=== PATIENT | female | born 1965 | race Two or more races ===

== ENCOUNTER 2024-06-26 10:49 | Outpatient (AMB) | payer MEDICAID, SELFPAY ==
--- NOTE | 2024-06-26 10:58 | ORTHONT_ITS ---
Vital signs 06/26/24 10:59 Height 1.55 m Height Method Stated Weight 67.614 kg Weight Measurement Method Standing Scale BMI 28.1 BP 133/84 H Blood Pressure Source Automatic Cuff Blood Pressure Location Left Upper Arm Position Sitting Respiration 18 Pulse 99 Pulse Source Monitor Temp 97.9 F Temp Source Temporal Artery Scan Pulse Oximetry (%) 95 Oxygen Delivery Method Room Air Med/Allergies Allergies & Medications Allergies No Known Allergies Allergy (Verified 06/26/24 10:59) Medication Reconciliation acetaminophen 500 mg tablet 1,000 mg PO QID PRN Pain 05/13/24 [History Confirmed 06/26/24] acetaminophen 500 mg tablet (Acetaminophen Extra Strength) 1,000 mg (2 x 500 mg) PO Q6H PRN pain #90 tabs 05/14/24 [Rx Confirmed 06/26/24] aspirin 81 mg tablet,delayed release 81 mg PO BID #60 tabs 05/14/24 [Rx Confirmed 06/26/24] doxycycline hyclate 100 mg tablet 100 mg PO BID #14 tabs 05/14/24 [Rx Confirmed 06/26/24] ferrous sulfate 324 mg (65 mg iron) tablet,delayed release 324 mg PO BID 05/14/24 [History Confirmed 06/26/24] gabapentin 300 mg capsule 300 mg PO .qhs #30 caps 05/14/24 [Rx Confirmed 06/26/24] oxycodone 5 mg tablet 5 mg PO Q6H PRN pain #28 tabs 05/14/24 [Rx Confirmed 1 08/26/23] sennosides 8.6 mg-docusate sodium 50 mg tablet (Senna-S) 1 tab-cap PO QDAY #30 tabs 05/14/24 [Rx Confirmed 06/26/24] Subjective Visit Visit for: follow up visit, post op #1 and knee Immunization / Flu Flu Vaccine in the Last 12 Months: No Flu Vaccine Exclusion Criteria: No Exclusion Criteria History of Present Illness Chief complaint: 2 WEEK POST OP SX Patient is a pleasant 59-year-old female status post left total knee replacement. She is doing well. She is using a walker. Personal History Occupation: DISABLED Red flag PMH: none Pain Pain level (0-10): 3 Pain duration: ON AND OFF Pain location: inside (medial) Pain quality: aching Pain timing: night Associated signs & symptoms: none Ambulatory data Ambulatory device: walker Treatments Improvement with previous injections: No Improvement with PT: No Improvement with NSAIDS: no Review of Systems Review of Systems: All systems negative unless otherwise noted in HPI. Exam Exam Patient is in no acute distress and is cooperative with the examination today. Breathing is nonlabored. Patient has a normal mood and affect. Bilateral extremities were evaluated and demonstrates sensation intact to light touch. Palpable pedal pulses are present. No significant edema is present. Bilateral hips were examined. The patient has no pain with log roll of the hips. Internal rotation to 30 degrees and external rotation to 30 degrees is painless. Negative FADIR. Right knee was examined today. The right knee is in reasonable alignment. Range of motion from 0-120 degrees. Knee is stable to varus and valgus as well as AP translation with <5mm. Patient has a negative McMurrays. There is no pain with patellofemoral compression and no crepitus noted. The knee is nontender to palpation. Left knee incision is clean dry and intact Assessment and Plan Problem List (1) Pain in left knee: Status: Acute Plan: Patient is a 58-year-old female with left knee pain and left knee osteoarthritis. The patient is doing well status post left total knee replacement Her left knee x-rays look good. Will see her in approximately 4 to 6 weeks (2) Unilateral primary osteoarthritis, left knee: Status: Acute Office Procedures GNS Level of Care Nursing/Assessment Patient Status: Established Patient Nursing Assessment/Reassesment: Medication Reconciliation, Update PMH in EMR and Vital Signs Coordination of Care: Complex Care and Chronic Disease 1-5, Education Complex Pt/Fam, Consent,records obtained, informed consent, Results/Orders obtained and Staff clarify orders Established Patient Charge Established Patient Point Assignment: 95 Established Patient Point Charge: EP Level 3 (80-115) Past Medical History Past Medical History Have you ever been diagnosed with any of the following: Neurological Problems Seizures: No Cardiology Problems Congestive Heart Failure: No Respiratory Problems Chronic Obstructive Pulmonary Disease (COPD): No Smoking: No Smoking Exposure: No Tobacco Use: No Stomache/Intestinal Problems Hepatitis: No Obesity: Yes Genital/Urinary Problems Renal Disease: Yes (sees Dr Espinosa) Reproductive Problems Previous Pregnancies: Yes (x3) Musculoskeletal Problems Arthritis: Yes Endocrine Problems Diabetes Mellitus Type 1: No Diabetes Mellitus Type 2: Yes (lost weight not taking meds anymore per ) Blood Problems Anemia: Yes Other Problems Hospitalization: No Shingles: No Blood Transfusions: No Blood Transfusion Reaction: No Anesthesia Reactions: No Chicken Pox: Yes Cancer: Yes
[2024-06-26 10:59] VITALS: BP 133/84; PULSE 99; RESP 18; TEMP 36.6; O2SAT 95; BMI 28.1
== END 2024-06-26 11:02 | disposition home or self-care (01) ==
LOC: HODSRG 10:49
PROVIDERS: PCP Family Medicine; Referring Provider Family Medicine; Supervising Provider Orthopaedic Surgery Adult Reconstructive Orthopaedic Surgery; Visit Provider Orthopaedic Surgery Adult Reconstructive Orthopaedic Surgery
DX: M25.562 Pain in left knee (principal); M17.12 Unilateral primary osteoarthritis, left knee; Z96.652 Presence of left artificial knee joint
CPT/HCPCS: 99213; G0463

== ENCOUNTER 2024-09-12 15:05 | Outpatient (AMB) | payer MEDICAID, SELFPAY ==
[2024-09-12 16:05] VITALS: BP 139/82; PULSE 90; RESP 18; TEMP 36.3; O2SAT 97; BMI 29.5
--- NOTE | 2024-09-12 16:05 | PD.ORTHCLVIS ---
Vital signs 09/12/24 16:05 Height 1.55 m Height Method Stated Weight 70.789 kg Weight Measurement Method Standing Scale BMI 29.5 BP 139/82 H Blood Pressure Source Automatic Cuff Blood Pressure Location Right Upper Arm Position Sitting Respiration 18 Pulse 90 Pulse Source Monitor Temp 97.4 F Temp Source Temporal Artery Scan Pulse Oximetry (%) 97 Oxygen Delivery Method Room Air Med/Allergies Allergies & Medications Allergies No Known Allergies Allergy (Verified 09/12/24 16:08) Exam Exam Patient is in no acute distress and is cooperative with the examination today. Breathing is nonlabored. Patient has a normal mood and affect. Bilateral extremities were evaluated and demonstrates sensation intact to light touch. Palpable pedal pulses are present. No significant edema is present. Bilateral hips were examined. The patient has no pain with log roll of the hips. Internal rotation to 30 degrees and external rotation to 30 degrees is painless. Negative FADIR. Right knee was examined today. The right knee is in reasonable alignment. Range of motion from 0-120 degrees. Knee is stable to varus and valgus as well as AP translation with <5mm. Patient has a negative McMurrays. There is no pain with patellofemoral compression and no crepitus noted. The knee is nontender to palpation. Left knee incision is clean dry and intact. ROM is 0-100 degrees Assessment and Plan Problem List (1) Pain in left knee: Status: Acute Plan: Patient is a 58-year-old female with left knee pain and left knee osteoarthritis. The patient is doing well status post left total knee replacement We will get x-rays of her right knee. (2) Unilateral primary osteoarthritis, left knee: Status: Acute Office Procedures GNS Level of Care Nursing/Assessment Patient Status: Established Patient Nursing Assessment/Reassesment: Medication Reconciliation, Update PMH in EMR and Vital Signs Coordination of Care: Complex Care and Chronic Disease 1-5, Education Complex Pt/Fam, Consent,records obtained, informed consent, Results/Orders obtained and Staff clarify orders Established Patient Charge Established Patient Point Assignment: 95 Established Patient Point Charge: EP Level 3 (80-115) MA Intake Visit Data Collection New Patient or Established: Established Patient (seen at [facility] within 3 years) Reason for Visit:: LEFT KNEE TKA Seen by Clinical Staff ONLY (RN/MA): No Verbal consent obtained for Telemed visit?: No Health Support Specialist Required: No PCP or OBGYN visit in last 3 months: Yes Hx Now: No Do You Feel Safe at Home: Yes Authorities Contacted: N/A Questionairres Past Medical History Past Medical History Have you ever been diagnosed with any of the following: Neurological Problems Seizures: No Cardiology Problems Congestive Heart Failure: No Respiratory Problems Chronic Obstructive Pulmonary Disease (COPD): No Smoking: No Smoking Exposure: No Tobacco Use: No Stomache/Intestinal Problems Hepatitis: No Obesity: Yes Genital/Urinary Problems Renal Disease: Yes (sees Dr Espinosa) Reproductive Problems Previous Pregnancies: Yes (x3) Musculoskeletal Problems Arthritis: Yes Endocrine Problems Diabetes Mellitus Type 1: No Diabetes Mellitus Type 2: Yes (lost weight not taking meds anymore per ) Blood Problems Anemia: Yes Other Problems Hospitalization: No Shingles: No Blood Transfusions: No Blood Transfusion Reaction: No Anesthesia Reactions: No Chicken Pox: Yes Cancer: Yes Subjective Visit Visit for: follow up visit and knee Immunization / Flu Flu Vaccine in the Last 12 Months: No Flu Vaccine Exclusion Criteria: No Exclusion Criteria History of Present Illness Chief complaint: Right knee pain Vijay 4-month status post left total knee replacement. She is doing well. She is no clear her left knee at all. She feels the right knee is affecting her she is never been worked up performed. We will get x-rays at this Pain Pain level (0-10): 4 Pain duration: ALL DAY Ambulatory data Ambulatory device: none Treatments Improvement with previous injections: No Improvement with PT: No Improvement with NSAIDS: n/a Review of Systems Review of Systems: All systems negative unless otherwise noted in HPI.
== END 2024-09-12 16:14 | disposition home or self-care (01) ==
PROVIDERS: PCP Family Medicine; Referring Provider Family Medicine; Supervising Provider Orthopaedic Surgery Adult Reconstructive Orthopaedic Surgery; Visit Provider Orthopaedic Surgery Adult Reconstructive Orthopaedic Surgery
DX: M25.562 Pain in left knee (principal); M17.12 Unilateral primary osteoarthritis, left knee; Z96.652 Presence of left artificial knee joint
CPT/HCPCS: 99213; G0463

== ENCOUNTER 2024-09-30 15:01 | Outpatient (AMB) | payer MEDICAID, SELFPAY ==
[2024-09-30 15:15] VITALS: BP 128/80; PULSE 80; RESP 18; TEMP 36.4; O2SAT 95; BMI 29.7
--- NOTE | 2024-09-30 15:15 | PD.ORTHCLVIS ---
Vital signs 09/30/24 15:15 Height 1.55 m Height Method Stated Weight 71.384 kg Weight Measurement Method Standing Scale BMI 29.7 BP 128/80 Blood Pressure Source Automatic Cuff Blood Pressure Location Right Upper Arm Position Sitting Respiration 18 Pulse 80 Pulse Source Monitor Temp 97.5 F Temp Source Temporal Artery Scan Pulse Oximetry (%) 95 Oxygen Delivery Method Room Air Med/Allergies Allergies & Medications Allergies No Known Allergies Allergy (Verified 09/30/24 15:16) Medication Reconciliation acetaminophen 500 mg tablet 1,000 mg PO QID PRN Pain 05/13/24 [History Confirmed 09/30/24] acetaminophen 500 mg tablet (Acetaminophen Extra Strength) 1,000 mg (2 x 500 mg) PO Q6H PRN pain #90 tabs 05/14/24 [Rx Confirmed 09/30/24] aspirin 81 mg tablet,delayed release 81 mg PO BID #60 tabs 05/14/24 [Rx Confirmed 09/30/24] doxycycline hyclate 100 mg tablet 100 mg PO BID #14 tabs 05/14/24 [Rx Confirmed 09/30/24] ferrous sulfate 324 mg (65 mg iron) tablet,delayed release 324 mg PO BID 05/14/24 [History Confirmed 09/30/24] gabapentin 300 mg capsule 300 mg PO .qhs #30 caps 05/14/24 [Rx Confirmed 09/30/24] oxycodone 5 mg tablet 5 mg PO Q6H PRN pain #28 tabs 05/14/24 [Rx Confirmed 09/30/24] sennosides 8.6 mg-docusate sodium 50 mg tablet (Senna-S) 1 tab-cap PO QDAY #30 tabs 05/14/24 [Rx Confirmed 09/30/24] Exam Exam Patient is in no acute distress and is cooperative with the examination today. Breathing is nonlabored. Patient has a normal mood and affect. Bilateral extremities were evaluated and demonstrates sensation intact to light touch. Palpable pedal pulses are present. No significant edema is present. Bilateral hips were examined. The patient has no pain with log roll of the hips. Internal rotation to 30 degrees and external rotation to 30 degrees is painless. Negative FADIR. Right knee was examined today. The right knee is in reasonable alignment. Range of motion from 0-120 degrees. Knee is stable to varus and valgus as well as AP translation with <5mm. Patient has a negative McMurrays. There is no pain with patellofemoral compression and no crepitus noted. The knee is nontender to palpation. Left knee incision is clean dry and intact. ROM is 0-100 degrees Assessment and Plan Problem List (1) Pain in left knee: Status: Acute Plan: Patient is a 58-year-old female with left knee pain and left knee osteoarthritis. The patient is doing well status post left total knee replacement. She would like a right knee injection today. The x-rays of the left knee look great. They are dated 09/25/2024 Recommend knee cortisone injection as patient would like to proceed with conservative treatment at this time. The risks and benefits of the procedure were reviewed with the patient and patient gave verbal consent to continue with the procedure. Procedure: performed by Dr. Antunez Using sterile technique the Right knee was thoroughly prepped with alcohol, and approximately 1 cc of Kenalog 40 mg/mL and 4 cc of 1% lidocaine was injected without resistance into the medial tibial femoral joint space. The patient tolerated the procedure. (2) Unilateral primary osteoarthritis, left knee: Status: Acute Office Procedures GNS Level of Care Nursing/Assessment Patient Status: Established Patient Nursing Assessment/Reassesment: Medication Reconciliation, Update PMH in EMR and Vital Signs Coordination of Care: Complex Care and Chronic Disease 1-5, Education Complex Pt/Fam, Consent,records obtained, informed consent, Results/Orders obtained and Staff clarify orders Established Patient Charge Established Patient Point Assignment: 95 Established Patient Point Charge: EP Level 3 (80-115) Surgical Proc/IM SQ injection Major Surgical Procedure: Yes (RIGHT KNEE INJECTION) Medication Given Medication Given Medication Given: Yes Documented Dose Given: 4 Route: Infiitration Medication Given Medication Given Medication Given: Yes Documented Dose Given: 1 Route: Infiitration Office Meds Xylocaine 10 mg/mL (1 %) injection solution Performing Provider: Kostas Antunez MD Performing Location: [facility] Administered by: Kostas Antunez MD on 09/30/24 15:34 Dose Route Admin Location Dispensed Lot Number Expiration Date [facility] [employer] 20 mL Infiltration 20 mL [id number] 12/18/27 00906-087-90 [facility] triamcinolone acetonide 40 mg/mL suspension for injection Performing Provider: Kostas Antunez MD Performing Location: [facility] Administered by: Kostas Antunez MD on 09/30/24 15:34 Dose Route Admin Location Dispensed Lot Number Expiration Date [facility] [employer] 40 mg Infiltration KNEE 1 mL [id number] 01/16/26 6985-0407-26 TEVA PARENTERAL [place] Intake Visit Data Collection New Patient or Established: Established Patient (seen at [facility] within 3 years) Reason for Visit:: F/U XRAYS Seen by Clinical Staff ONLY (RN/MA): No Verbal consent obtained for Telemed visit?: No Slurry Man Required: No PCP or OBGYN visit in last 3 months: Yes Hx Now: No Do You Feel Safe at Home: Yes Authorities Contacted: N/A Questionairres Past Medical History Past Medical History Have you ever been diagnosed with any of the following: Neurological Problems Seizures: No Cardiology Problems Congestive Heart Failure: No Respiratory Problems Chronic Obstructive Pulmonary Disease (COPD): No Smoking: No Smoking Exposure: No Tobacco Use: No Stomache/Intestinal Problems Hepatitis: No Obesity: Yes Genital/Urinary Problems Renal Disease: Yes (sees Dr Espinosa) Reproductive Problems Previous Pregnancies: Yes (x3) Musculoskeletal Problems Arthritis: Yes Endocrine Problems Diabetes Mellitus Type 1: No Diabetes Mellitus Type 2: Yes (lost weight not taking meds anymore per ) Blood Problems Anemia: Yes Other Problems Hospitalization: No Shingles: No Blood Transfusions: No Blood Transfusion Reaction: No Anesthesia Reactions: No Chicken Pox: Yes Cancer: Yes Subjective Visit Visit for: follow up visit and x-rays Immunization / Flu Flu Vaccine in the Last 12 Months: No Flu Vaccine Exclusion Criteria: No Exclusion Criteria History of Present Illness Chief complaint: F/U XRAYS Patient is a 59-year-old female with right knee pain and right knee arthritis. She is also status post left total knee replacement 4 months ago and is doing well. She would like a cortisone injection in the right knee. The right knee hurts significantly more than the left Pain Pain level (0-10): 3 Pain duration: ALL DAY Pain location: inside (medial), outside (lateral), anterior and posterior Pain quality: sharp, dull and aching Pain timing: increases with activity Ambulatory data Ambulatory device: none Treatments Improvement with previous injections: No Improvement with PT: No Improvement with NSAIDS: no Review of Systems Review of Systems: All systems negative unless otherwise noted in HPI.
== END 2024-09-30 15:38 | disposition home or self-care (01) ==
LOC: HODSRG 15:01
PROVIDERS: PCP Family Medicine; Referring Provider Family Medicine; Supervising Provider Orthopaedic Surgery Adult Reconstructive Orthopaedic Surgery; Visit Provider Orthopaedic Surgery Adult Reconstructive Orthopaedic Surgery
DX: M25.561 Pain in right knee (principal); M25.562 Pain in left knee; M17.0 Bilateral primary osteoarthritis of knee; Z96.652 Presence of left artificial knee joint
CPT/HCPCS: 20610; 99213; J3301; J3490; G0463

== ENCOUNTER 2024-12-30 14:05 | Outpatient (AMB) | payer MEDICAID, SELFPAY ==
[2024-12-30 14:29] VITALS: BP 145/88; PULSE 90; RESP 19; TEMP 36.1; O2SAT 94; BMI 31.2
--- NOTE | 2024-12-30 14:29 | PD.ORTHCLVIS ---
Vital signs 12/30/24 14:29 Height 1.55 m Height Method Stated Weight 75.041 kg Weight Measurement Method Standing Scale BMI 31.2 BP 145/88 H Blood Pressure Source Automatic Cuff Blood Pressure Location Right Upper Arm Position Sitting Respiration 19 Pulse 90 Pulse Source Monitor Temp 96.9 F Temp Source Temporal Artery Scan Pulse Oximetry (%) 94 L Oxygen Delivery Method Room Air Med/Allergies Allergies & Medications Allergies No Known Allergies Allergy (Verified 12/30/24 14:30) Medication Reconciliation acetaminophen 500 mg tablet 1,000 mg PO QID PRN Pain 05/13/24 [History Confirmed 12/30/24] acetaminophen 500 mg tablet (Acetaminophen Extra Strength) 1,000 mg (2 x 500 mg) PO Q6H PRN pain #90 tabs 05/14/24 [Rx Confirmed 12/30/24] aspirin 81 mg tablet,delayed release 81 mg PO BID #60 tabs 05/14/24 [Rx Confirmed 12/30/24] doxycycline hyclate 100 mg tablet 100 mg PO BID #14 tabs 05/14/24 [Rx Confirmed 12/30/24] ferrous sulfate 324 mg (65 mg iron) tablet,delayed release 324 mg PO BID 05/14/24 [History Confirmed 12/30/24] gabapentin 300 mg capsule 300 mg PO .qhs #30 caps 05/14/24 [Rx Confirmed 12/30/24] oxycodone 5 mg tablet 5 mg PO Q6H PRN pain #28 tabs 05/14/24 [Rx Confirmed 12/30/24] sennosides 8.6 mg-docusate sodium 50 mg tablet (Senna-S) 1 tab-cap PO QDAY #30 tabs 05/14/24 [Rx Confirmed 12/30/24] Exam Exam Patient is in no acute distress and is cooperative with the examination today. Breathing is nonlabored. Patient has a normal mood and affect. Bilateral extremities were evaluated and demonstrates sensation intact to light touch. Palpable pedal pulses are present. No significant edema is present. Bilateral hips were examined. The patient has no pain with log roll of the hips. Internal rotation to 30 degrees and external rotation to 30 degrees is painless. Negative FADIR. Right knee was examined today. The right knee is in reasonable alignment. Range of motion from 0-120 degrees. Knee is stable to varus and valgus as well as AP translation with <5mm. Patient has a negative McMurrays. There is no pain with patellofemoral compression and no crepitus noted. The knee is nontender to palpation. Left knee incision is clean dry and intact. ROM is 0-100 degrees Assessment and Plan Problem List (1) Pain in left knee: Status: Acute Plan: Patient is a 58-year-old female with left knee pain and left knee osteoarthritis. The patient is doing well status post left total knee replacement. She would like a right knee injection today. The x-rays of the left knee look great. They are dated 09/25/2024 Recommend knee cortisone injection as patient would like to proceed with conservative treatment at this time. The risks and benefits of the procedure were reviewed with the patient and patient gave verbal consent to continue with the procedure. Procedure: performed by Dr. Antunez Using sterile technique the Right knee was thoroughly prepped with alcohol, and approximately 1 cc of Kenalog 40 mg/mL and 4 cc of 1% lidocaine was injected without resistance into the medial tibial femoral joint space. The patient tolerated the procedure. (2) Unilateral primary osteoarthritis, left knee: Status: Acute Office Procedures GNS Level of Care Nursing/Assessment Patient Status: Established Patient Nursing Assessment/Reassesment: Medication Reconciliation, Update PMH in EMR and Vital Signs Coordination of Care: Complex Care and Chronic Disease 1-5, Education Complex Pt/Fam, Consent,records obtained, informed consent, Lab and Imaging orders, Results/Orders obtained and Staff clarify orders Established Patient Charge Established Patient Point Assignment: 110 Established Patient Point Charge: EP Level 3 (80-115) Surgical Proc/IM SQ injection Major Surgical Procedure: Yes (KNEE INJECTION ) Medication Given Medication Given Medication Given: Yes Documented Dose Given: 4 Route: Infiitration Medication Given Medication Given Medication Given: Yes Documented Dose Given: 1 Office Meds Xylocaine 10 mg/mL (1 %) injection solution Performing Provider: Kostas Antunez MD Performing Location: [facility] Administered by: Kostas Antunez MD on 12/30/24 14:50 Dose Route Admin Location Dispensed Lot Number Expiration Date [facility] [employer] Examiner 20 mL Infiltration 20 mL [id number] [facility] triamcinolone acetonide 40 mg/mL suspension for injection Performing Provider: Kostas Antunez MD Performing Location: [facility] Administered by: Kostas Antunez MD on 12/30/24 14:50 Dose Route Admin Location Dispensed Lot Number Expiration Date [facility] [employer] 40 mg intra-articular KNEE 1 mL [id number] 07/20/26 9105-1818-98 TEVA PARENTERAL MA Intake Visit Data Collection New Patient or Established: Established Patient (seen at [facility] within 3 years) Reason for Visit:: F/U 3 MONTH KNEE INJECTION Seen by Clinical Staff ONLY (RN/MA): No Verbal consent obtained for Telemed visit?: No Day Care Home Mother Required: No PCP or OBGYN visit in last 3 months: Yes Hx Now: No Do You Feel Safe at Home: Yes Authorities Contacted: N/A Questionairres Past Medical History Past Medical History Have you ever been diagnosed with any of the following: Neurological Problems Seizures: No Cardiology Problems Congestive Heart Failure: No Respiratory Problems Chronic Obstructive Pulmonary Disease (COPD): No Smoking: No Smoking Exposure: No Tobacco Use: No Stomache/Intestinal Problems Hepatitis: No Obesity: Yes Genital/Urinary Problems Renal Disease: Yes (sees Dr Espinosa) Reproductive Problems Previous Pregnancies: Yes (x3) Musculoskeletal Problems Arthritis: Yes Endocrine Problems Diabetes Mellitus Type 1: No Diabetes Mellitus Type 2: Yes (lost weight not taking meds anymore per ) Blood Problems Anemia: Yes Other Problems Hospitalization: No Shingles: No Blood Transfusions: No Blood Transfusion Reaction: No Anesthesia Reactions: No Chicken Pox: Yes Cancer: Yes Subjective Visit Visit for: follow up visit and knee Immunization / Flu Flu Vaccine in the Last 12 Months: No Flu Vaccine Exclusion Criteria: No Exclusion Criteria History of Present Illness Chief complaint: F/U 3 MONTH KNEE INJECTION Patient is a 59-year-old female with right knee pain and right knee arthritis. She is also status post left total knee replacement 6 months ago and is doing well. She would like a cortisone injection in the right knee. The right knee hurts significantly more than the left Personal History Red flag PMH: BMI BMI Counceling provided: Yes Pain Pain level (0-10): 0 Pain duration: ALL DAY Pain location: inside (medial), outside (lateral), anterior and posterior Pain quality: sharp, dull and aching Pain timing: increases with activity Associated signs & symptoms: none Ambulatory data Ambulatory device: none Treatments Improvement with previous injections: No Improvement with PT: No Improvement with NSAIDS: no Review of Systems Review of Systems: All systems negative unless otherwise noted in HPI.
== END 2024-12-30 14:48 | disposition home or self-care (01) ==
LOC: HODSRG 14:05
PROVIDERS: PCP Family Medicine; Referring Provider Family Medicine; Supervising Provider Orthopaedic Surgery Adult Reconstructive Orthopaedic Surgery; Visit Provider Orthopaedic Surgery Adult Reconstructive Orthopaedic Surgery
DX: M25.561 Pain in right knee (principal); M25.562 Pain in left knee; M17.12 Unilateral primary osteoarthritis, left knee; Z96.652 Presence of left artificial knee joint; E11.9 Type 2 diabetes mellitus without complications
CPT/HCPCS: 20610; 99213; J3301; J3490; G0463

== ENCOUNTER 2025-04-02 12:59 | Outpatient (AMB) | payer MEDICAID, SELFPAY ==
--- NOTE | 2025-04-02 13:12 | ORTHONT_ITS ---
Vital signs 04/02/25 13:22 Height 1.55 m Height Method Stated Weight 77.763 kg Weight Measurement Method Standing Scale BMI 32.3 BP 143/88 H Blood Pressure Source Automatic Cuff Blood Pressure Location Left Upper Arm Position Sitting Respiration 18 Pulse 98 Pulse Source Monitor Temp 98.0 F Temp Source Temporal Artery Scan Pulse Oximetry (%) 91 L Oxygen Delivery Method Room Air Med/Allergies Allergies & Medications Allergies No Known Allergies Allergy (Verified 04/02/25 13:22) Medication Reconciliation acetaminophen 500 mg tablet (Acetaminophen Extra Strength) 1,000 mg (2 x 500 mg) PO Q6H PRN pain #90 tabs 05/14/24 [Rx Confirmed 04/02/25] aspirin 81 mg tablet,delayed release 81 mg PO BID #60 tabs 05/14/24 [Rx Confirmed 04/02/25] doxycycline hyclate 100 mg tablet 100 mg PO BID #14 tabs 05/14/24 [Rx Confirmed 04/02/25] ferrous sulfate 324 mg (65 mg iron) tablet,delayed release 324 mg PO BID 05/14/24 [History Confirmed 04/02/25] gabapentin 300 mg capsule 300 mg PO .qhs #30 caps 05/14/24 [Rx Confirmed 04/02/25] oxycodone 5 mg tablet 5 mg PO Q6H PRN pain #28 tabs 05/14/24 [Rx Confirmed 04/02/25] sennosides 8.6 mg-docusate sodium 50 mg tablet (Senna-S) 1 tab-cap PO QDAY #30 t abs 05/14/24 [Rx Confirmed 04/02/25] Exam Exam Patient is in no acute distress and is cooperative with the examination today. Breathing is nonlabored. Patient has a normal mood and affect. Bilateral extremities were evaluated and demonstrates sensation intact to light touch. Palpable pedal pulses are present. No significant edema is present. Bilateral hips were examined. The patient has no pain with log roll of the hips. Internal rotation to 30 degrees and external rotation to 30 degrees is painless. Negative FADIR. Right knee was examined today. The right knee is in reasonable alignment. Range of motion from 0-120 degrees. Knee is stable to varus and valgus as well as AP translation with <5mm. Patient has a negative McMurrays. There is no pain with patellofemoral compression and no crepitus noted. The knee is nontender to palpation. Left knee incision is clean dry and intact. ROM is 0-100 degrees Assessment and Plan Problem List (1) Unilateral primary osteoarthritis, left knee: Status: Acute (2) Pain in left knee: Status: Acute Plan: Patient is a 58-year-old female with left knee pain and left knee osteoarthritis . The patient is doing well status post left total knee replacement. She would like a right knee injection today. Recommend knee cortisone injection as patient would like to proceed with conservative treatment at this time. The risks and benefits of the procedure were reviewed with the patient and patient gave verbal consent to continue with the procedure. Procedure: performed by Dr. Antunez Using sterile technique the Right knee was thoroughly prepped with alcohol, and approximately 1 cc of Depo-Medrol 80mg/mL and 4 cc of 0.2% ropivacaine was injected without resistance into the medial tibial femoral joint space. The patient tolerated the procedure. Office Procedures GNS Level of Care Nursing/Assessment Patient Status: Established Patient Nursing Assessment/Reassesment: Medication Reconciliation, Update PMH in EMR and Vital Signs Coordination of Care: Complex Care and Chronic Disease 1-5, Education Complex Pt/Fam, Consent,records obtained, informed consent, Results/Orders obtained and Staff clarify orders Established Patient Charge Established Patient Point Assignment: 95 Established Patient Point Charge: EP Level 3 (80-115) Surgical Proc/IM SQ injection Major Surgical Procedure: Yes (KNEE INJECTION ) Medication Given Medication Given Medication Given: Yes Documented Dose Given: 1 Route: Infiitration Medication Given Medication Given Medication Given: Yes Documented Dose Given: 4 Route: Infiitration Office Meds methylprednisolone acetate 80 mg/mL suspension for injection Performing Provider: Kostas Antunez MD Performing Location: [facility] Administered by: Kostas Antunez MD on 04/02/25 13:16 Dose Route Admin Location Dispensed Lot Number Expiration Date [facility] [employer] 80 mg intra-articular KNEE 1 mL [id number] 01/17/27 [address]-7 A [facility] ropivacaine (PF) 2 mg/mL (0.2 %) injection solution Performing Provider: Kostas Antunez MD Performing Location: [facility] Administered by: Kostas Antunez MD on 04/02/25 13:16 Dose Route Admin Location Dispensed Lot Number Expiration Date [facility] Employment Law Attorney 20 mL Infiltration KNEE 20 mL [id number] 06/19/26 38983-620-27 [facility] [place] Intake Visit Data Collection New Patient or Established: Established Patient (seen at [facility] within 3 years) Reason for Visit:: F/U 3 MONTH KNEE INJECTION Seen by Clinical Staff ONLY (RN/MA): No Verbal consent obtained for Telemed visit?: No Home Comfort Advisor Required: No PCP or OBGYN visit in last 3 months: Yes Hx Now: No Do You Feel Safe at Home: Yes Authorities Contacted: N/A Questionairres Past Medical History Past Medical History Have you ever been diagnosed with any of the following: Neurological Problems Seizures: No Cardiology Problems Congestive Heart Failure: No Respiratory Problems Chronic Obstructive Pulmonary Disease (COPD): No Smoking: No Smoking Exposure: No Tobacco Use: No Stomache/Intestinal Problems Hepatitis: No Obesity: Yes Genital/Urinary Problems Renal Disease: Yes (sees Dr Espinosa) Reproductive Problems Previous Pregnancies: Yes (x3) Musculoskeletal Problems Arthritis: Yes Endocrine Problems Diabetes Mellitus Type 1: No Diabetes Mellitus Type 2: Yes (lost weight not taking meds anymore per ) Blood Problems Anemia: Yes Other Problems Hospitalization: No Shingles: No Blood Transfusions: No Blood Transfusion Reaction: No Anesthesia Reactions: No Chicken Pox: Yes Cancer: Yes Subjective Visit Visit for: follow up visit, knee and injections Immunization / Flu Flu Vaccine in the Last 12 Months: No Flu Vaccine Exclusion Criteria: No Exclusion Criteria History of Present Illness Chief complaint: F/U 3 MONTH KNEE INJECTION Patient is a 59-year-old female with right knee pain and right knee arthritis. She is also status post left total knee replacement 12 months ago and is doing well. She would like a cortisone injection in the right knee. The right knee hurts significantly more than the left Personal History Red flag PMH: BMI BMI Counceling provided: Yes Pain Pain level (0-10): 4 Pain duration: ALL DAY Pain location: anterior Pain quality: aching Pain timing: increases with activity Associated signs & symptoms: none Ambulatory data Ambulatory device: none Treatments Number of previous injections: 1 Improvement with previous injections: No Number of Physical Therapy sessions: 0 Improvement with PT: No Improvement with NSAIDS: no Review of Systems Review of Systems: All systems negative unless otherwise noted in HPI.
[2025-04-02 13:22] VITALS: BP 143/88; PULSE 98; RESP 18; TEMP 36.7; O2SAT 91; BMI 32.3
== END 2025-04-02 13:33 | disposition home or self-care (01) ==
LOC: HODSRG 12:59
PROVIDERS: PCP Family Medicine; Referring Provider Family Medicine; Supervising Provider Orthopaedic Surgery Adult Reconstructive Orthopaedic Surgery; Visit Provider Orthopaedic Surgery Adult Reconstructive Orthopaedic Surgery
DX: M17.12 Unilateral primary osteoarthritis, left knee (principal); Z96.652 Presence of left artificial knee joint; E11.9 Type 2 diabetes mellitus without complications; E66.9 Obesity, unspecified; Z71.3 Dietary counseling and surveillance; Z68.32 Body mass index [BMI] 32.0-32.9, adult
CPT/HCPCS: 20610; 99213; J1010; J2795; G0463

== ENCOUNTER 2025-07-07 13:38 | Outpatient (AMB) | payer MEDICAID, SELFPAY ==
[2025-07-07 13:46] VITALS: BP 163/94; PULSE 100; RESP 16; TEMP 35.8; O2SAT 95; BMI 33.9
--- NOTE | 2025-07-07 13:46 | PD.ORTHCLVIS ---
Vital signs 07/07/25 13:46 Height 1.55 m Height Method Measured Weight 81.448 kg Weight Measurement Method Standing Scale BMI 33.9 BP 163/94 H Blood Pressure Source Automatic Cuff Blood Pressure Location Left Upper Arm Position Sitting Respiration 16 Pulse 100 Pulse Source Monitor Temp 96.5 F L Temp Source Temporal Artery Scan Pulse Oximetry (%) 95 Oxygen Delivery Method Room Air Med/Allergies Allergies & Medications Allergies No Known Allergies Allergy (Verified 07/07/25 13:47) Medication Reconciliation acetaminophen 500 mg tablet (Acetaminophen Extra Strength) 1,000 mg (2 x 500 mg) PO Q6H PRN pain #90 tabs 05/14/24 [Rx Confirmed 07/07/25] aspirin 81 mg tablet,delayed release 81 mg PO BID #60 tabs 05/14/24 [Rx Confirmed 07/07/25] doxycycline hyclate 100 mg tablet 100 mg PO BID #14 tabs 05/14/24 [Rx Confirmed 07/07/25] ferrous sulfate 324 mg (65 mg iron) tablet,delayed release 324 mg PO BID 05/14/24 [History Confirmed 07/07/25] gabapentin 300 mg capsule 300 mg PO .qhs #30 caps 05/14/24 [Rx Confirmed 07/07/25] oxycodone 5 mg tablet 5 mg PO Q6H PRN pain #28 tabs 05/14/24 [Rx Confirmed 07/07/25] sennosides 8.6 mg-docusate sodium 50 mg tablet (Senna-S) 1 tab-cap PO QDAY #30 tabs 05/14/24 [Rx Confirmed 07/07/25] Exam Exam Patient is in no acute distress and is cooperative with the examination today. Breathing is nonlabored. Patient has a normal mood and affect. Bilateral extremities were evaluated and demonstrates sensation intact to light touch. Palpable pedal pulses are present. No significant edema is present. Bilateral hips were examined. The patient has no pain with log roll of the hips. Internal rotation to 30 degrees and external rotation to 30 degrees is painless. Negative FADIR. Right knee was examined today. The right knee is in reasonable alignment. Range of motion from 0-120 degrees. Knee is stable to varus and valgus as well as AP translation with <5mm. Patient has a negative McMurrays. There is no pain with patellofemoral compression and no crepitus noted. The knee is nontender to palpation. Left knee incision is clean dry and intact. ROM is 0-100 degrees Assessment and Plan Problem List (1) Unilateral primary osteoarthritis, left knee: Status: Acute (2) Pain in left knee: Status: Acute Plan: Patient is a 58-year-old female with left knee pain and left knee osteoarthritis. The patient is doing well status post left total knee replacement. She would like a right knee injection today. Recommend knee cortisone injection as patient would like to proceed with conservative treatment at this time. The risks and benefits of the procedure were reviewed with the patient and patient gave verbal consent to continue with the procedure. Procedure: performed by Dr. Antunez Using sterile technique the Right knee was thoroughly prepped with alcohol, and approximately 1 cc of Depo-Medrol 80mg/mL and 4 cc of 0.2% ropivacaine was injected without resistance into the medial tibial femoral joint space. The patient tolerated the procedure. Office Procedures GNS Level of Care Nursing/Assessment Patient Status: Established Patient Nursing Assessment/Reassesment: Medication Reconciliation, Update PMH in EMR and Vital Signs Coordination of Care: Complex Care and Chronic Disease 1-5, Education Complex Pt/Fam, Consent,records obtained, informed consent, Results/Orders obtained and Staff clarify orders Established Patient Charge Established Patient Point Assignment: 95 Established Patient Point Charge: EP Level 3 (80-115) Surgical Proc/IM SQ injection Minor Surgical Procedure: Yes (KNEE INJECTION ) Medication Given Medication Given Medication Given: Yes Route: Infiitration Medication Given Medication Given Medication Given: Yes Documented Dose Given: 4 Route: Infiitration Office Meds methylprednisolone acetate 80 mg/mL suspension for injection Performing Provider: Kostas Antunez MD Performing Location: [facility] Administered by: Kostas Antunez MD on 07/07/25 15:33 Dose Route Admin Location Dispensed Lot Number Expiration Date Package [facility] [employer] 80 mg intra-articular 1 mL [address]-2 [id number] [employer] ropivacaine (PF) 2 mg/mL (0.2 %) injection solution Performing Provider: Kostas Antunez MD Performing Location: [facility] Administered by: Kostas Antunez MD on 07/07/25 15:33 Dose Route Admin Location Dispensed Lot Number Expiration Date Package [facility] [employer] 20 mL Infiltration 20 mL 22475-069-32 [id number] [facility] Intake Visit Data Collection New Patient or Established: Established Patient (seen at [facility] within 3 years) Reason for Visit:: F/U 3 MONTH KNEE INJECTION Seen by Clinical Staff ONLY (RN/MA): No Verbal consent obtained for Telemed visit?: No 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 PCP or OBGYN visit in last 3 months: Yes Hx Now: No Do You Feel Safe at Home: Yes Authorities Contacted: N/A Questionairres Past Medical History Past Medical History Have you ever been diagnosed with any of the following: Neurological Problems Seizures: No Cardiology Problems Congestive Heart Failure: No Respiratory Problems Chronic Obstructive Pulmonary Disease (COPD): No Smoking: No Smoking Exposure: No Tobacco Use: No Stomache/Intestinal Problems Hepatitis: No Obesity: Yes Genital/Urinary Problems Renal Disease: Yes (sees Dr Espinosa) Reproductive Problems Previous Pregnancies: Yes (x3) Musculoskeletal Problems Arthritis: Yes Endocrine Problems Diabetes Mellitus Type 1: No Diabetes Mellitus Type 2: Yes (lost weight not taking meds anymore per ) Blood Problems Anemia: Yes Other Problems Hospitalization: No Shingles: No Blood Transfusions: No Blood Transfusion Reaction: No Anesthesia Reactions: No Chicken Pox: Yes Cancer: Yes Subjective Visit Visit for: follow up visit, knee and injections Immunization / Flu Flu Vaccine in the Last 12 Months: No Flu Vaccine Exclusion Criteria: No Exclusion Criteria History of Present Illness Chief complaint: F/U 3 MONTH KNEE INJECTION Patient is a 59-year-old female with right knee pain and right knee arthritis. She is also status post left total knee replacement 12 months ago and is doing well. She would like a cortisone injection in the right knee. The right knee hurts significantly more than the left Personal History Red flag PMH: BMI BMI Counceling provided: Yes Pain Pain level (0-10): 4 Pain duration: ALL DAY Pain location: anterior Pain quality: aching Pain timing: increases with activity Associated signs & symptoms: none Ambulatory data Ambulatory device: none Treatments Number of previous injections: 1 Improvement with previous injections: No Number of Physical Therapy sessions: 0 Improvement with PT: No Improvement with NSAIDS: no Review of Systems Review of Systems: All systems negative unless otherwise noted in HPI.
== END 2025-07-07 13:51 | disposition home or self-care (01) ==
LOC: HODSRG 13:38
PROVIDERS: PCP Family Medicine; Referring Provider Family Medicine; Supervising Provider Orthopaedic Surgery Adult Reconstructive Orthopaedic Surgery; Visit Provider Orthopaedic Surgery Adult Reconstructive Orthopaedic Surgery
DX: M25.561 Pain in right knee (principal); M17.11 Unilateral primary osteoarthritis, right knee; Z96.652 Presence of left artificial knee joint; E66.9 Obesity, unspecified; Z68.33 Body mass index [BMI] 33.0-33.9, adult
CPT/HCPCS: 20610; 99213; J1010; J2795; G0463